=== PATIENT | male | born 1980 | race Caucasian/White ===

== ENCOUNTER 2021-06-13 18:08 | Emergency (ER) | payer MEDICARE, MEDICAID, SELFPAY ==
[2021-06-13 20:05] VITALS: BP 137/93; PULSE 64; RESP 16; TEMP 36.4; O2SAT 98; BMI 28.1
[2021-06-13] MEDS: Lidocaine HCl 2 % MPF 5 ML VIAL INFILTRATI ×2 (21:42→21:43)
[2021-06-13] MEDS: Diphth,Pertus(ACell),Tet Adult 0.5 ML SYRINGE IM (21:43)
--- NOTE | 2021-06-13 22:01 | ED_ITS ---
HPI - General Adult General Chief complaint: Skin/Abscess/Foreign Body Stated complaint: ingrown nail Time Seen by Provider: 06/13/21 20:57 Source: patient Mode of arrival: ambulatory Limitations: no limitations History of Present Illness HPI narrative: Patient presents to ED right ingrown toenail of great toe for 2 weeks as very painful. Patient has had ingrown toenail removed before in the past. Patient denies any trauma to the foot Related Data Previous Rx's Medication Instructions Recorded naproxen 500 mg tablet 500 mg PO BID PRN #20 tab 06/13/21 Allergies Allergy/AdvReac Type Severity Reaction Status Date / Time oxycodone Allergy Unknown Verified 05/26/16 00:00 No Known Allergies Allergy Unverified 05/27/20 16:39 [No Known Allergies*] Review of Systems Review of Systems: Yes all other systems are reviewed and are negative Constitutional: Constitutional: Reports as per HPI and Reports no additional constitutional complaints Eyes: Eyes: Reports as per HPI and Reports no additional eye complaints ENT: Reports system reviewed and no additional complaints, except as documen noemy and Reports as per HPI Cardiovascular: Cardiovascular: Reports as per HPI and Reports no additional cardiovascular complaints Respiratory: Respiratory: Reports as per HPI and Reports no additional respiratory complaints Gastrointestinal: Gastrointestinal: Reports as per HPI and Reports no additional gastrointestinal complaints Musculoskeletal: Musculoskeletal: Reports no additional musculoskeletal complaints and Reports as per HPI Comments: Right ingrown toenail Neurologic: Reports system reviewed and no additional complaints, except as documented and Reports as per HPI Psychiatric: Psychiatric: Reports no additional psychiatric complaints and Reports as per HPI COUNT INCLUDES [facility] Past Medical History Medical History (Updated 06/13/21 @ 22:11 by KHADRA Taylor) No known health problems Social History Social History Advance Directives: No Advance Directives Information Provided: No Physical Exam Vital Signs: Vital Signs: Last Vital Signs Temp 97.6 F 06/13/21 20:05 Pulse 64 06/13/21 20:05 Resp 16 06/13/21 20:05 BP 137/93 H 06/13/21 20:05 Pulse Ox 98 06/13/21 20:05 Body Mass Index 28.1 Const: General: cooperative, healthy appearing, comfortable, no acute distress, well developed, alert, awake and Physically active Orientation/consciousness: patient oriented x3 HENMT: Head: Yes normal to inspection, Yes No palpable skull fracture present, Yes normocephalic, Yes atraumatic and No abrasion Eyes: General: appearance normal, both eyes and all related structures Neck: Neck: Yes normal visual inspection, Yes full ROM, Yes no lympha denopathy, Yes no meningeal signs, Yes trachea midline, Yes supple and No tender Chest: Chest palpation & inspection: normal inspection of the chest and normal palpation of entire chest wall Resp: Effort & Inspection: normal respiratory effort and able to speak in complete sentences Auscultation: clear to auscultation bilaterally Cardio: Jugular venous distension: no JVD Heart sounds: S1 normal heart sound present and S2 normal heart sound present GI: Inspection: Yes normal to inspection and No abdominal wall ecchymosis Palpation (GI): Soft to palpation, not firm, nontender, no guarding and not r igid : General: No CVA tenderness and Yes no CVA tenderness Back/Spine/Pelvis: Back: no CVA tenderness, No CVA tenderness and No back tenderness Skin: General skin exam: no rashes or lesions noted and elasticity normal Neuro: General: patient oriented x3, gait normal, no meningeal signs and CN's II-XI intact bilaterally Cranial nerves: Yes CN's II-XII intact bilaterally Extrem: General: Yes normal to inspection and Yes full ROM Ankle/foot/toe images: 1. Ingrown toenail with surrounding skin tender on palpation. Negative for deformity or ecchymosis. Pedal pulses intact. Neuro/motor exam intact Psych: Appearance: grossly normal, well kempt and not disheveled Course Course Course Narrative: Ingrown toenail. Reevaluation(s) Reevaluation #1: Right big toe an anestheside with 6 mL of lidocaine 2%. Area cleaned with Betadine and normal saline. Forceps and scissors used to excise ingrown toenail. Xeroform dressing placed on area. Patient given Tdap. Time: 22:10 Medical Decision Making [facility] Narrative Medical decision making narrative: Ingrown toenail Discharge Plan Discharge Clinical Impression: Ingrowing toenail of right foot Patient Disposition: Home, Self-Care Instructions: Ingrown Nail (ED) Additional Instructions: Your ingrown toenail removed. You will be discharged with pain medication. Return to the ED for erythema, pus discharge, foul odor, severe pain from area, fever, chills, or any other concerning symptoms. Please follwo up with PCP Prescriptions: New naproxen 500 mg tablet 500 mg PO BID PRN (Reason: pain) Qty: 20 RF: 0 Stand Alone Forms: Work/School Release Print Language: Indonesian
[2021-06-13] MEDS: traMADoL HCL 50 MG TABLET PO (22:33)
== END 2021-06-13 22:36 | disposition home or self-care (01) ==
PROVIDERS: Emergency Provider Internal Medicine; PCP Internal Medicine
DX: S90.411A Abrasion, right great toe, initial encounter (principal); L60.0 Ingrowing nail; X58.XXXA Exposure to other specified factors, initial encounter; Y93.9 Activity, unspecified; Y92.9 Unspecified place or not applicable; Y99.9 Unspecified external cause status; Z79.899 Other long term (current) drug therapy
CPT/HCPCS: 11750; 90471; 90715; 99283; 99284

== ENCOUNTER 2022-07-15 23:25 | Emergency (ER) | payer MEDICARE, MEDICAID, SELFPAY ==
[2022-07-15 23:34] VITALS: BP 105/65; PULSE 74; RESP 20; TEMP 36.3; O2SAT 95; BMI 31.3
[2022-07-16 01:12] LABS: Basophils Percent Auto 0.2 % (0-2); Eosinophils Absolute Auto 0.1 X10*3/uL (0.0-0.4); Eosinophils Percent Auto 1.3 % (0-4); Hematocrit 45.7 % (42.0-52.0); Hemoglobin 15.5 g/dl (14.0-18.0); Imm Gran Abs Auto 0.04 X10*3/uL (0.00-0.03); Imm Gran Pct Auto 0.5 % (0.0-0.4); Lymphocytes Absolute Auto 2.7 X10*3/uL (1.2-4.9); Lymphocytes Percent Auto 32.9 % (20-40); MANUAL DIFF FLAG NO; Mean Corpuscular HGB Conc 33.9 g/dl (31.0-36.0); Mean Corpuscular Hemoglobin 29.6 pg (27.0-33.0); Mean Corpuscular Volume 87.4 fL (80.0-98.0); Monocytes Percent Auto 11.8 % (2-11); Neutrophils Absolute Auto 4.4 x10*3/uL (2.0-8.3); Neutrophils Percent Auto 53.3 % (45-73); Platelet Count 229 X10*3/uL (160-400); Red Blood Count 5.23 X10*6/uL (4.60-5.80); White Blood Count 8.3 X10*3/uL (4.8-10.8)
[2022-07-16 01:27] LABS: Alanine Aminotransferase 30 U/L (0-40); Albumin Level 4.2 g/dL (3.5-5.0); Alkaline Phosphatase 83 U/L (39-117); Anion Gap 18 (12-20); Aspartate Amino Transferase 19 U/L (5-37); Bilirubin Total 0.3 mg/dL (0.0-1.0); Blood Urea Nitrogen 18 mg/dL (9-16); Calcium 9.2 mg/dL (8.4-10.2); Carbon Dioxide 23 mmol/L (22-29); Chloride 106 mmol/L (96-108); Estimated Glomerular Filt Rate 53; Glucose Random 107 mg/dL (60-115); Potassium 3.7 mmol/L (3.3-5.1); Sodium 143 mmol/L (135-145); Total Protein 6.9 g/dL (6.5-8.0)
== END 2022-07-16 02:47 | disposition left against medical advice (07) ==
PROVIDERS: Emergency Provider Emergency Medicine
DX: M79.605 Pain in left leg (principal); M79.604 Pain in right leg; R20.0 Anesthesia of skin; R20.2 Paresthesia of skin
CPT/HCPCS: 36415; 80053; 85025; 99281; 99283

== ENCOUNTER 2022-08-06 16:22 | Emergency (ER) | payer MEDICARE, MEDICAID, SELFPAY ==
[2022-08-06 17:14] VITALS: BP 132/90; PULSE 65; RESP 18; TEMP 36.3; O2SAT 97; BMI 31.4
--- NOTE | 2022-08-06 17:14 | ED_ITS ---
HPI - General Adult General Chief complaint: General Medical Stated complaint: swollen neck, ear pain Time Seen by Provider: 08/06/22 21:31 Source: patient Mode of arrival: ambulatory Limitations: no limitations History of Present Illness HPI narrative: Patient is a 42 year old assigned male at with no reported medical history presenting to the emergency department today with a painful lump and swollen lymph nodes. Patient states that 2 days ago he started to have general body aches, a painful lump on his forehead, and swollen left sided lymph nodes in his neck. Patient denies any dizziness, lightheadedness, abdominal pain, nausea, vomiting, fever, chills, blurry vision, double vision, loss of vision, chest pain, difficulty breathing, shortness of breath, back pain, night sweats, pain with urination, increased urinary frequency, increased urinary urgency, blood in his urine or stool, syncope or a near syncopal episode, recent trauma or falls, bowel incontinence, bladder incontinence, bowel retention, bladder retention, or any other complaints at this time. Onset (ago): day(s) (2) Severity: mild Severity scale (1-10): 3 Relieving factors: none Exacerbating factors: none Associated symptoms: denies other symptoms Treatments prior to arrival: none Related Data Previous Rx's Medication Instructions Recorded naproxen 500 mg tablet 500 mg PO BID PRN pain #20 tabs 06/13/21 Allergies Allergy/AdvReac Type Severity Reaction Status Date / Time No Known Allergies Allergy Unverified 05/27/20 16:39 [No Known Allergies*] Review of Systems Constitutional: Constitutional: Reports no additional constitutional c omplaints, Reports body ache(s), Denies chills, Denies fever(s) and Denies night sweats Eyes: Eyes: Reports no additional eye complaints, Denies blurry vision, Denies change in vision, Denies diplopia, Denies eye discharge, Denies loss of vision and Denies eye pain ENT: Denies dizziness Comments: swollen neck lymph nodes Cardiovascular: Cardiovascular: Reports no additional cardiovascular complaints, Denies chest pain, Denies lightheadedness, Denies Loss of Consciousness and Denies dyspnea Respiratory: Respiratory: Reports no additional respiratory complaints and Denies dyspnea Gastrointestinal: Gastrointestinal: Reports no additional gastrointestinal complaints, Denies abdominal pain, Denies melena, Denies hematochezia, Denies change in bowel habits and Denies change in stool character Genitourinary: Genitourinary: Reports no additional male genitourinary complaints, Denies hematuria, Denies oliguria, Denies difficulty urinating, Denies dysuria, Denies urinary frequency, Denies urinary hesitancy, Denies urinary incontinence and Denies urinary urgency Musculoskeletal: Musculoskeletal: Reports no additional musculoskeletal complaints, Denies numbness and Denies tingling Integumentary/Breasts: Comments: painful lump on forehead Neurologic: Denies dizziness, Denies loss of vision, Denies numbness and Denies tingling Psychiatric: Psychiatric: Reports no additional psychiatric complaints Endocrine: Endocrine: Reports no additional endocrine complaints Hematologic/Lymphatic: Hematologic/Lymphatic: Reports no additional hematologic/lymphatic complaints Allergic/Immunologic: Allergic/Immunologic: Reports no additional allergic/immunologic complaints PMFSH Past Medical History Attestation statement: The following information was validated with the patient. Source: old records reviewed Medical History No known health problems Social History Social History Advance Directives: No Advance Directives Information Provided: No Physical Exam ED Vital Signs: Vital Signs - 24 hr 08/06/22 17:14 Temperature 97.4 F Pulse Rate 65 Respiratory Rate 18 Blood Pressure 132/90 H Pulse Oximetry 97 Oxygen Delivery Method Room Air BMI result Body Mass Index 31.4 Const General: cooperative, no acute distress, alert and awake Nutritional Appearance: well nourished Orientation/consciousness: patient oriented x3 Limitations: no limitations [facility] Head: Yes normal to inspection and Yes atraumatic Ears: hearing grossly normal bilaterally and external ears normal General nose exam: Normal external nose present, no nasal discharge noted and no epistaxis Face and sinus: Yes normal facial exam, No abrasion and No laceration Mouth: Normal oral and palatal mucosa present, no drooling and no muffled voice Eyes General: appearance normal, both eyes and all related structures Periorbital: periorbital findings normal Eyelids: Yes eyelids normal Conjunctivae: conjunctivae normal Pupils: Equal, round and reactive pupils present EOM: EOMs intact bilaterally Neck Neck: Yes normal visual inspection, Yes full ROM, Yes no meningeal signs and Yes lymphadenopathy (left anterior cervical) Chest Chest palpation & inspection: normal inspection of the chest Resp Effort & Inspection: normal respiratory effort and able to speak in complete s entences GI Inspection: Yes normal to inspection Skin Other: small pustule above left eye brow Neuro General: patient oriented x3, moves all extremities and no meningeal signs Cranial nerves: Yes Equal, round and reactive pupils present Cognition (Neuro): normal cognition Motor exam (neuro): 5/5 motor strength present throughout Sensory Exam: Normal double simultaneous stimulation for sensation Coordination: [id number] test normal Extrem General: Yes normal to inspection, Yes full ROM and Yes capillary refill normal Psych Appearance: grossly normal Mental Status: mental status grossly normal Affect: normal affect Attitude: cooperative Thought process: Normal thought process present Thought content: Normal thought content present Insight: Good insight present (Psych) Course Course Course Narrative: RME performed by Dania Alvarez PA-C. Patient is a 42 year old male presenting to the emergency department with generalized body aches, left ear pain, and left sided neck pain. Patient's left TM is erythmeatous. COVID/Influenza/RSV swab ordered. Patient placed back in waiting room pending results and bed availabiltiy. Medical Decision Making MDM Narrative Medical decision making narrative: Patient is a 42 year old assigned male at with no reported medical history presenting to the emergency department today with swollen lympnodes, body aches, and a lump on his forehead. Patient's physical exam showed a small pustule just above the left eyebrow, and mild left sided anterior cervical lymphadenopathy. Patient's COVID-19/influenza/RSV swab was negative. Patient eloped from the department before the patient's results could be explained to him or reviewed with him. Lab Data Labs: Lab Results 08/06/22 Range/Units 17:19 Influenza Type A (PCR) NEGATIVE (Negative) Influenza Type B (PCR) NEGATIVE (Negative) RSV RNA Qual (PCR) NEGATIVE (Negative) SARS-CoV-2 RNA (RT-PCR) NEGATIVE (Negative) Discharge Plan Discharge Clinical Impression: Lymphadenopathy Patient Disposition: Elopement Prescriptions: No Action naproxen 500 mg tablet 500 mg PO BID PRN (Reason: pain) Qty: 20 0RF Interventions: LWBS Worksheet Last Done: 08/06/22 21:31 Discharge Date/Time: 08/06/22 22:20
[2022-08-06 18:04] LABS: Influenza A PCR NEGATIVE (Negative); Influenza B PCR NEGATIVE (Negative); Resp Syncy Virus RNA Qual PCR NEGATIVE (Negative); SARS COV2 PCR INHOUSE NEGATIVE (Negative)
== END 2022-08-06 22:20 | disposition left against medical advice (07) ==
PROVIDERS: Physician Assistant Medical; Emergency Provider Emergency Medicine
DX: M54.2 Cervicalgia (principal); H92.03 Otalgia, bilateral; R59.1 Generalized enlarged lymph nodes; Z20.822 Contact with and (suspected) exposure to COVID-19; Z79.899 Other long term (current) drug therapy
CPT/HCPCS: 0241U; 99281; 99283

== ENCOUNTER 2022-08-09 09:11 | Emergency (ER) | payer MEDICARE, MEDICAID, SELFPAY ==
[2022-08-09 09:21] VITALS: BP 111/70; PULSE 66; RESP 20; TEMP 36.2; O2SAT 97; BMI 31.4
--- NOTE | 2022-08-09 11:47 | ED.GENADULT ---
HPI - General Adult General Chief complaint: General Medical Stated complaint: L eye swollen, neck swollen Time Seen by Provider: 08/09/22 11:24 Source: patient Mode of arrival: ambulatory Limitations: no limitations History of Present Illness HPI narrative: 42-year-old male presents to ED for painful swollen rash above left eyebrow, left ear pain, left side of neck tender and slightly swollen. Patient states there was a pimple above his left eyebrow and then he scratched it and then started noticing redness, , burning, and itchiness. Patient denies any eye pain, loss of hearing, nasal lesions, coughing, chest pain, shortness of breath. Patient states chronic lower back pain exacerbation. Patient denies any IV drugs a history of immunocompromised disease. Patient denies any change in eye vision or recent blunt trauma to the eye. Related Data Previous Rx's Medication Instructions Recorded naproxen 500 mg tablet 500 mg PO BID PRN pain #20 tabs 06/13/21 cephalexin 500 mg capsule 500 mg PO QID 7 days #28 caps 08/09/22 doxycycline hyclate 100 mg capsule 100 mg PO BID 7 days #14 caps 08/09/22 naproxen 500 mg tablet 500 mg PO BID PRN pain 7 days #14 08/09/22 tabs valacyclovir 1 gram tablet 1,000 mg PO TID 7 days #21 tabs 08/09/22 Allergies Allergy/AdvReac Type Severity Reaction Status Date / Time No Known Allergies Allergy Unverified 05/27/20 16:39 [No Known Allergies*] Review of Systems Review of Systems: painful rash above left eye. left neck, and ear pain Yes all other systems are reviewed and are negative [facility] Past Medical History Medical History No known health problems Social History Social History Advance Directives: No Advance Directives Information Provided: No Physical Exam ED Vital Signs: Vital Signs - 24 hr 08/09/22 09:21 Temperature 97.2 F Pulse Rate 66 Respiratory Rate 20 Blood Pressure 111/70 Pulse Oximetry 97 Oxygen Delivery Method Room Air BMI result Body Mass Index 31.4 Const General: cooperative, healthy appearing, comfortable, no acute distress, well developed, alert, awake and Physically active Orientation/consciousness: oriented to person, oriented to place, oriented to time and patient oriented x3 HENSC Other: pustule rash. negative for lesion on nose. Head: Yes normal to inspection, Yes No palpable skull fracture present, Yes normocephalic, Yes atraumatic and No abrasion Ears: hearing grossly normal bilaterally, external ears normal, TM's normal bilaterally, TM normal on the right, TM normal on the left, EAC's normal, mastoids normal, no periauricular adenopathy and other (negative arcos koehler) Eyes Other: negative dendrites or corneal ulcers or lesions General: appearance normal, both eyes and all related structures Neck Neck: Yes normal visual inspection, Yes full ROM, Yes no meningeal signs, Yes trachea midline, No supple and Yes lymphadenopathy (left cervical) Chest Chest palpation & inspection: normal inspection of the chest and normal palpation of entire chest wall Resp Effort & Inspection: normal respiratory effort and able to speak in complete sentences Auscultation: clear to auscultation bilaterally Cardio Jugular venous distension: no JVD Heart sounds: S1 normal heart sound present and S2 normal heart sound present GI Inspection: Yes normal to inspection and No abdominal wall ecchymosis Palpation (GI): Soft to palpation, not firm, nontender, no guarding and not rigid General: No CVA tenderness and Yes no CVA tenderness Back/Spine/Pelvis Back: no CVA tenderness, No CVA tenderness and No back tenderness Skin General skin exam: no rashes or lesions noted and elasticity normal Neuro General: oriented to person, oriented to place, oriented to time, patient oriented x3, gait normal, tone normal and no meningeal signs Cranial nerves: Yes CN's II-XII intact bilaterally Extrem General: Yes normal to inspection and Yes full ROM Psych Appearance: grossly normal, well kempt and not disheveled Course Course Course Narrative: Will do eye exam a fluorescein dye and wood's lamp. Reevaluation(s) Reevaluation #1: Visual acuity both eyes 20/20. Negative for signs of corneal abrasion, corneal ulcer, or dendrites. test done with fluroscein dye and tetracine and wood's lamp was used. Physical exam indicates more cellulitis versus shingles but due to ear pain and left cervical lymphadenopathy and rash looks pusutle will discharge with antiviral medication. Informed to follow-up with primary care provider and eye doctor Time: 12:27 Medications Administered Discontinued Medications Generic Name Dose Route Start Last Admin Trade Name Elianq PRN Reason Stop Dose Admin Fluorescein Sodium 1 strip 08/09/22 11:47 08/09/22 12:04 Fluorescein Sodium Strip EYE-LEFT 08/09/22 11:48 1 strip ONCE ONE Administration Fluorescein Sodium 1 strip 08/09/22 11:47 08/09/22 12:03 Fluorescein Sodium Strip EYE-RIGHT 08/09/22 11:48 1 strip ONCE ONE Administration Naproxen 500 mg 08/09/22 12:14 08/09/22 12:55 Naproxen 500 Mg Tablet PO 08/09/22 12:15 500 mg ONCE ONE Administration Tetracaine HCl 3 drop 08/09/22 11:47 08/09/22 12:03 Tetracaine Hcl/Pf 0.5% Oph Jessica 4 Ml Drops EYE-BOTH 08/09/22 11:48 3 drop ONCE ONE Administration Medical Decision Making MDM Narrative Medical decision making narrative: facial cellulitis Discharge Plan Discharge Clinical Impression: Cellulitis, face Patient Disposition: Home, Self-Care Instructions: Cellulitis (ED), Warm Compress or Soak (ED) Additional Instructions: You will be discharged with antibiotics for skin infection cellulitis. This may also be early shingles which is why you will be discharged with antiviral medication. Please follow-up with primary care provider and eye doctor. Recommend warm compress on left side of face 4 times a day. Return to the ED immediately for worsening pain, increased swelling, nasal lesions, worsening ear pain, change/loss of vision, headache, fever, chills, drooling, change in voice, increased swelling of neck, or any other concerning symptoms. Prescriptions: New cephalexin 500 mg capsule 500 mg PO QID 7 Days Qty: 28 0RF doxycycline hyclate 100 mg capsule 100 mg PO BID 7 Days Qty: 14 0RF valacyclovir 1 gram tablet 1,000 mg PO TID 7 Days Qty: 21 0RF naproxen 500 mg tablet 500 mg PO BID PRN (Reason: pain) 7 Days Qty: 14 0RF No Action naproxen 500 mg tablet 500 mg PO BID PRN (Reason: pain) Qty: 20 0RF Referrals: Denys Sheridan III, MD [Primary Care Provider] - (Cellulitis of face. possible early facial shingles) Ludin Solitario [Physician] - (possible early facial shingles) Stand Alone Forms: Work/School Release Interventions: ED Discharge Assessment Last Done: 08/09/22 13:01 Discharge Date/Time: 08/09/22 13:03 Print Language: Palauan
[2022-08-09] MEDS: Tetracaine HCl/PF 0.5% Oph Sol 4 ML DROPS 3 DROP EYE-BOTH (12:03)
[2022-08-09] MEDS: Fluorescein Sodium STRIP 1 STRIP EYE-RIGHT (12:03)
[2022-08-09] MEDS: Fluorescein Sodium STRIP 1 STRIP EYE-LEFT (12:04)
[2022-08-09] MEDS: NaPROXEN 500 MG TABLET PO (12:55)
== END 2022-08-09 13:03 | disposition home or self-care (01) ==
PROVIDERS: Emergency Provider Student in an Organized Health Care Education/Training Program; PCP Internal Medicine
DX: L03.211 Cellulitis of face (principal)
CPT/HCPCS: 99283

== ENCOUNTER 2024-10-11 18:12 | Emergency (ER) | payer OTHER, SELFPAY ==
--- NOTE | ~2024-10-11 | XR_ITS ---
CLINICAL HISTORY: ? Dislocation. Pain 3 view right shoulder Comparison: None Findings: Bones intact. No dislocations. No significant loss of joint space or osteophytes. No erosions. No radiopaque foreign body. IMPRESSION: 1. No acute findings This document has been electronically signed by: Ish Duncan MD on 10/11/2024 19:08:52
--- NOTE | ~2024-10-11 | XR_ITS ---
CLINICAL HISTORY: rib pain, coughing 4 view, chest and right ribs Comparison: None Findings: Heart size is normal. Lung volumes are low. No effusion or pneumothorax. No rib fractures identified. No pneumothorax. No pleural effusion. IMPRESSION: 1. No acute fractures. This document has been electronically signed by: Ish Duncan MD on 10/11/2024 20:48:17
[2024-10-11 18:18] VITALS: BP 142/90; PULSE 86; RESP 28; TEMP 36.6; O2SAT 98; BMI 31.5
--- NOTE | 2024-10-11 18:19 | ED_ITS ---
HPI - Extremity Injury (Upper) General Chief Complaint: Extremity Injury, Upper Stated Complaint: Rt Shoulder Pain Time Seen by Provider: 10/11/24 19:29 Source: patient, RN notes reviewed and old records reviewed Mode of arrival: ambulatory History of Present Illness ED Provider: Tory Leal PA-C HPI narrative: 44-year-old male with a past medical history right shoulder dislocation s/p operation 5 years ago presenting to the ED complaining of suspected right shoulder dislocation/possible relocation s/p cleaning INFORMATION SYSTEMS ADMINISTRATOR. States was overhead reaching for something/pulling and felt shoulder pop. Denies direct injury, trauma/fall. Reports increasing pain since incident. Denies numbness, tingling, SOB. Related Data Previous Rx's ?Medication ?Instructions ?Recorded naproxen 500 mg tablet 500 mg PO BID PRN pain #20 tabs 06/13/21 cephalexin 500 mg capsule 500 mg PO QID 7 days #28 caps 08/09/22 doxycycline hyclate 100 mg capsule 100 mg PO BID 7 days #14 caps 08/09/22 naproxen 500 mg tablet 500 mg PO BID PRN pain 7 days #14 08/09/22 tabs valacyclovir 1 gram tablet 1,000 mg PO TID 7 days #21 tabs 08/09/22 acetaminophen 500 mg tablet 500 mg PO Q6H PRN fever or pain 10/11/24 (Tylenol Extra Strength) #14 tabs cyclobenzaprine 10 mg tablet 10 mg PO TID PRN muscle spasm #14 10/11/24 tabs lidocaine 5 % topical patch 1 patch topical DAILY PRN pain #30 10/11/24 (Lidoderm) ea naproxen 500 mg tablet 500 mg PO BID PRN pain 10 days #20 10/11/24 tabs Allergies Allergy/AdvReac Type Severity Reaction Status Date / Time No Known Allergies Allergy Verified 10/11/24 18:19 [No Known Allergies*] Review of Systems Review of Systems: Yes all other systems are reviewed and are negative Constitutional: Constitutional: Reports as per [facility] Past Medical History Attestation statement: The following information was validated with the patient. Source: old records reviewed Medical History No known health problems Social History Social History Advance Directives: No Advance Directives Information Provided: No Do you have a plan to hurt others: No Plan Physical Exam Vital Signs: Vital Signs: Last Vital Signs Temp 98.2 F 10/11/24 21:31 Pulse 66 10/11/24 21:31 Resp 20 10/11/24 21:31 BP 120/74 10/11/24 21:31 Pulse Ox 97 10/11/24 21:31 O2 Del Method Room Air 10/11/24 21:31 BMI result Body Mass Index 31.5 Const: General: cooperative, healthy appearing and no acute distress Orientation/consciousness: patient oriented x3 Limitations: no limitations HEENT: Head: Yes normal to inspection and Yes atraumatic Ears: hearing grossly normal bilaterally General nose exam: Normal external nose present Face and sinus: Yes normal facial exam Eyes: General: appearance normal, both eyes and all related structures EOM: EOMs intact bilaterally Neck: Neck: Yes normal visual inspection and Yes no meningeal signs Chest: Other: + tenderness to right anterior lateral c hest wall beneath axilla. No flail chest. No ecchymosis or erythema Chest palpation & inspection: normal inspection of the chest and no crepitus Resp: Effort & Inspection: normal respiratory effort and no respiratory distress Cardio: Rate: regular rate Heart sounds: S1 normal heart sound present and S2 normal heart sound present GI: Inspection: Yes normal to inspection Palpation (GI): Soft to palpation, nontender, no guarding and not rigid Skin: Rashes: no rashes Wounds: no wounds Neuro: General: patient oriented x3, tone normal and no meningeal signs Cranial nerves: Yes CN's II-XII intact bilaterally Gait exam (Neuro): Normal gait present Extrem: Other: Right shoulder without appreciable deformity or swelling. Diffusely tender to palpation. ROM intact with discomfort. Neurovascularly intact distally. Course Course Course Narrative: This is a Rapid Medical Exam performed in triage by Tory Leal PA-C. Full HPI, ROS and PE to be performed by primary ED provider. 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 Denies known injury, trauma denies numbness/tingling. PE: No appreciable deformity. Diffusely tender. Limited ROM. Neurovascularly intact distally Plan: X-ray XR shoulder RT min 2V IMPRESSION: 1. No acute findings > sling applied for comfort XR ribs RT min 3V w CXR1V IMPRESSION: 1. No acute fractures. Results discussed with patient including worrisome signs and symptoms and strict return precautions, and when to return to the emergency department. They verbalized understanding and feel safe for discharge at this time. Medications Administered Discontinued Medications Generic Name Dose Route Start Last Admin Trade Name Cody PRN Reason Stop Dose Admin Cyclobenzaprine HCl 10 mg 10/11/24 19:57 10/11/24 20:05 Cyclobenzaprine Hcl 10 Mg Tablet PO 10/11/24 19:58 10 mg ONCE ONE Administration Ketorolac Tromethamine 30 mg 10/11/24 19:57 10/11/24 20:05 Ketorolac Tromethamine 30 Mg/Ml Vial IM 10/11/24 19:58 30 mg ONCE ONE Administration Lidocaine 1 patch 10/11/24 19:57 10/11/24 20:03 Lidocaine 4 % Patch Adh..Patch TRANSDERMA 10/11/24 19:58 1 patch ONCE ONE Administration Protocol Medical Decision Making Medical Decision Making MDM Narrative: 44-year-old male with a past medical history right shoulder dislocation s/p operation 5 years ago presenting to the ED complaining of suspected right shoulder dislocation/possible relocation s/p cleaning INFORMATION SYSTEMS ADMINISTRATOR. On exam tachypneic likely from pain, appears uncomfortable, physical exam as noted above. Concern for dislocation/relocation. Low suspicion for active dislocation at this time. Rule out MSK pain/strain vs tendon/ligamental injury vs rib fracture. Low suspicion for intra-abdominal or intrathoracic bleeding Plan: X-rays, pain control Please refer to course for remaining clinical decision making, interpretation of labs/imaging results, and discussions with consultants and/or family members. Differential Diagnosis Differential Diagnoses: The differential diagnosis associated with the presentation includes As above Admission/Observation Consideration of admission/observation: Escalation of care including admission/observation considered Lab Data [facility] Lab Attestation statement: I reviewed the patient's lab results. Independent Interpretation I performed an independent interpretation of an: Plain X-Ray Radiology Impression Discussion of test interpretation with radiology: I have reviewed the radiolog ist's reading. External Record Review External record reviewed: Inpatient record, Office record, Outpatient record, Prior outpatient labs, Prior outpatient radiology, Primary care record and Outside ED record Tests considered The following testing was considered but not selected: As above Prescription Management I considered prescription management with: Pain Medication Chronic Conditions Patient?s care impacted by: Other Social Determinants Patient?s care significantly limited by Social Determinants of Health including: Other Social Determinant of Health Attestation Attending Attestation: I was personally present and available for consultation in the ED. I have reviewed everything on the chart that is available and agree with the documentation provided by the MARLEN including discussion about the assessment, treatment plan and discussion. Based on medical record the care appears appropriate. Neftali Membreno MD [facility] Emergency Medicine Discharge Plan Discharge Clinical Impression: Acute shoulder pain Patient Disposition: Home, Self-Care Instructions: Shoulder Pain (ED) Additional Instructions: Your shoulder x-rays unremarkable. Your shoulder is not dislocated. Please wear sling as needed for comfort, however you need to be moving/range of motioning your arm or you can develop frozen shoulder. Please practice gentle range of motion. you need to follow-up with the civil design specialist, call Sunday to make an appointment Flexeril is a muscle relaxer, take at night as it makes you drowsy, do not drive, drink alcohol, or operate machinery while taking it Naproxen as an anti-inflammatory / pain medication, take with food Lidoderm patches are numbing patches, apply to painful area In addition take Tylenol at home If symptoms persist or worsen, pain becomes unbearable, you developed urinary retention or incontinence, or weakness return to the ED Prescriptions: New cyclobenzaprine 10 mg tablet 10 mg PO TID PRN (Reason: muscle spasm) Qty: 14 0RF acetaminophen [Tylenol Extra Strength] 500 mg tablet 500 mg PO Q6H PRN (Reason: fever or pain) Qty: 14 0RF lidocaine [Lidoderm] 5 % adhesive patch,medicated 1 patch topical DAILY MDD remove after 12 hours PRN (Reason: pain) Qty: 30 0RF Rx Instructions: leave on most painful area for up to 12 hrs naproxen 500 mg tablet 500 mg PO BID PRN (Reason: pain) 10 Days Qty: 20 0RF No Action naproxen 500 mg tablet 500 mg PO BID PRN (Reason: pain) Qty: 20 0RF cephalexin 500 mg capsule 500 mg PO QID 7 Days Qty: 28 0RF doxycycline hyclate 100 mg capsule 100 mg PO BID 7 Days Qty: 14 0RF valacyclovir 1 gram tablet 1,000 mg PO TID 7 Days Qty: 21 0RF naproxen 500 mg tablet 500 mg PO BID PRN (Reason: pain) 7 Days Qty: 14 0RF Referrals: [facility] [Provider Group] Denys Sheridan III, MD [Primary Care Provider] - Stand Alone Forms: Work/School Release Interventions: ED Discharge Assessment Last Done: 10/11/24 21:31 Discharge Date/Time: 10/11/24 21:31 Print Language: Citizen [place]
[2024-10-11] MEDS: Lidocaine 4 % Patch ADH..PATCH 1 PATCH TRANSDERMA (20:03)
[2024-10-11] MEDS: Ketorolac Tromethamine 30 MG/ML VIAL IM (20:05)
[2024-10-11] MEDS: Cyclobenzaprine HCl 10 MG TABLET PO (20:05)
[2024-10-11 20:59] VITALS: BP 120/74; PULSE 66; RESP 20; TEMP 36.8; O2SAT 97
[2024-10-11 21:31] VITALS: BP 120/74; PULSE 66; RESP 20; TEMP 36.8; O2SAT 97
== END 2024-10-11 21:31 | disposition home or self-care (01) ==
PROVIDERS: Emergency Provider Emergency Medicine; PCP Internal Medicine
DX: M25.511 Pain in right shoulder (principal); R05.9 Cough, unspecified; R07.81 Pleurodynia
CPT/HCPCS: 71101; 73030; 96372; 99283; 99284; J1885

== ENCOUNTER → 2024-10-11 18:20 | Outpatient (BNV) | payer OTHER, SELFPAY | PROVIDERS: PCP Internal Medicine; Visit Provider Radiology Diagnostic Radiology | DX: R07.81 Pleurodynia (principal); R05.9 Cough, unspecified; M25.511 Pain in right shoulder | CPT/HCPCS: 71101; 73030 ==

== ENCOUNTER → 2025-03-03 20:20 | Outpatient (BNV) | payer OTHER, SELFPAY | PROVIDERS: PCP Internal Medicine; Visit Provider Radiology Vascular & Interventional Radiology | DX: M54.2 Cervicalgia (principal); G89.11 Acute pain due to trauma | CPT/HCPCS: 72040; 72100 ==

== ENCOUNTER 2025-03-03 20:22 | Emergency (ER) | payer OTHER, MEDICAID, SELFPAY ==
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
[2025-03-03 20:46] VITALS: BP 107/73; PULSE 77; RESP 14; TEMP 36.9; O2SAT 95; BMI 31.6
== END 2025-03-04 00:53 | disposition left against medical advice (07) ==
PROVIDERS: Emergency Provider Emergency Medicine; PCP Internal Medicine
DX: Z04.1 Encounter for examination and observation following transport accident (principal); Z53.21 Procedure and treatment not carried out due to patient leaving prior to being seen by health care provider; M54.9 Dorsalgia, unspecified; M54.2 Cervicalgia
CPT/HCPCS: 72040; 72100; 99281

== ENCOUNTER 2025-03-04 13:53 | Emergency (ER) | payer MEDICAID, SELFPAY ==
[2025-03-04 14:55] VITALS: BP 103/61; PULSE 73; RESP 16; TEMP 37; O2SAT 96; BMI 32.0
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
[2025-03-04 15:39] VITALS: BP 125/70; PULSE 72; RESP 18; O2SAT 97
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
[2025-03-04 16:34] VITALS: BP 125/73; PULSE 74; RESP 20; TEMP 36.6; O2SAT 95
[2025-03-04] MEDS: Ketorolac Tromethamine 15 MG/ML VIAL IM (16:37)
[2025-03-04] MEDS: dexAMETHasone 2 MG TABLET 10 MG PO (16:38)
[2025-03-04 16:44] VITALS: BP 125/73; PULSE 74; RESP 20; TEMP 36.6; O2SAT 95
--- OUTSIDE RECORDS SUMMARY | 2025-03-04 18:38 | XMS_ITS | Clinical Summary ---
Author Organization [employer] Address [address] [place] [address] Care Team Providers Care Diagnostic Cardiac Sonographer Name Role Phone Unavailable Primary Care Provider Unavailabl e Immunizations Immunization Administration Dates Next Due Moderna Covid-19 Vaccine 12+ 02/08/2021,01/11/20 21 Moderna Covid-19 Vaccine 6+ Bivalent 10/18/2022 Social History Tobacco Use Types Packs/Day Years Used Date Smoking Tobacco: Never Assessed Sex and Gender Information Value Date Recorded Sex Assigned at Male 07/10/2022 10:15 AM EDT Legal Sex Male 10:15 AM EDT Gender Identity Choose not to disclose 10:15 AM EDT Sexual Orientation Choose not to disclose 2021 10:15 AM EDT Plan of Treatment Health Maintenance Due Date Last Done Comments CT Colonography 1978 Colonoscopy 1978 Colorectal Cancer Screening 1978 Depression Screening 1978 FIT DNA/Cologuard 1978 FIT 1978 FOBT 1978 HIV Screening 1978 Lipid Panel 1978 SDOH Screening 1978 Sigmoidoscopy 1978 Disability Screening 1978 Alcohol/Substance Use Screening 1990 Tobacco Screening 1990 Family Planning (PISQ) 1993 Hepatitis C Screening 1996 DTaP/Tdap/Td Vaccines (1 - Tdap) 1997 Hepatitis B Vaccines (1 of 3 - 19+ 3-dose series) 1997 COVID-19 Vaccine ( - 2023-2 5 season) 2024 10/18/2022, 02/08/2021, 01/10/2021 Influenza Vaccine (Season Ended) 2025 Zoster Vaccines (1 of 2) 2028 RSV Patients and Patients Aged 60 years or older (1 - 1-dose 75+ series) 2053 HIB Vaccines Aged Out No longer eligi ble based on patient's age to complete this topic HPV Vaccines Aged Out No longer eligi ble based on patient's age to complete this topic Hepatitis A Vaccines Aged Out No long er eligible based on patient's age to complete this topic IPV Vaccines Aged Out No longer eligi ble based on patient's age to complete this topic Meningococcal B Vaccine Aged Out No l onger eligible based on patient's age to complete this topic Meningococcal Vaccine Aged Out No andrey alicia eligible based on patient's age to complete this topic Pneumococcal Vaccine: Pediatrics (0 to 5 Years) and At-Risk Patients (6 to 49) Years Aged Out No longer eligible b ased on patient's age to complete this topic RSV under 20 months Aged Out No longe r eligible based on patient's age to complete this topic Rotavirus Vaccines Aged Out No longer eligible based on patient's age to complete this topic Insurance [facility] STANDARD
== END 2025-03-04 16:45 | disposition home or self-care (01) ==
PROVIDERS: Emergency Provider Emergency Medicine
DX: S13.4XXA Sprain of ligaments of cervical spine, initial encounter (principal); M54.16 Radiculopathy, lumbar region; V59.3XXA Occupant (driver) (passenger) of pick-up truck or van injured in unspecified nontraffic accident, initial encounter; Y93.9 Activity, unspecified; Y92.481 Parking lot as the place of occurrence of the external cause; Y99.8 Other external cause status
CPT/HCPCS: 96372; 99284; J1885; J8540

== ENCOUNTER 2025-05-05 20:23 | Emergency (ER) | payer OTHER, SELFPAY ==
--- NOTE | ~2025-05-05 | XR_ITS ---
CLINICAL HISTORY: fall. Fracutre? 4 view left knee Comparison: None provided Findings: Bones intact. No dislocations. No significant arthritic change or erosions. No joint effusion. No radiopaque foreign body. IMPRESSION: 1. No acute findings. This document has been electronically signed by: Rukhsana Molina MD on 05/05/2025 21:49:12
[2025-05-05 21:02] VITALS: BP 122/76; PULSE 82; RESP 15; TEMP 36.9; O2SAT 96; BMI 31.0
--- NOTE | 2025-05-05 21:05 | ED_ITS ---
HPI - General Adult General Chief complaint: Extremity Injury, Lower Stated complaint: swollen left knee, pain History of Present Illness HPI narrative: patient left before completion of treatment by ED provider. Related Data Previous Rx's ?Medication ?Instructions ?Recorded naproxen 500 mg tablet 500 mg PO BID PRN pain #20 t abs 06/13/21 cephalexin 500 mg capsule 500 mg PO QID 7 days #28 cap s 08/09/22 doxycycline hyclate 100 mg capsule 100 mg PO BID 7 day s #14 caps 08/09/22 naproxen 500 mg tablet 500 mg PO BID PRN pain 7 day s #14 08/09/22 tabs valacyclovir 1 gram tablet 1,000 mg PO TID 7 days #21 tabs 08/09/22 acetaminophen 500 mg tablet 500 mg PO Q6H PRN fever or pain 10/11/24 (Tylenol Extra Strength) #14 tabs cyclobenzaprine 10 mg tablet 10 mg PO TID PRN muscle s pasm #14 10/11/24 tabs lidocaine 5 % topical patch 1 patch topical DAILY PRN pain #30 10/11/24 (Lidoderm) ea naproxen 500 mg tablet 500 mg PO BID PRN pain 10 da ys #20 10/11/24 tabs cyclobenzaprine 10 mg tablet 10 mg PO TID PRN muscle s pasm #14 03/04/25 tabs prednisone 20 mg tablet 40 mg (2 x 20 mg) PO DAILY 5 days 03/04/25 #10 tabs Allergies Allergy/AdvReac Type Severity Reaction Status Date / Time No Known Allergies (No Known Allergy Verified 05/05/25 21:04 Allergies*) FORMERLY [facility], [facility] Past Medical History Medical History No known health problems Social History Social History Advance Directives: No Advance Directives Information Provided: No Do you have a plan to hurt others: No Plan Physical Exam ED Vital Signs: Vital Signs - 24 hr 05/05/25 21:02 Temperature 98.5 F Pulse Rate 82 Respiratory Rate 15 Blood Pressure 122/76 Pulse Oximetry 96 Oxygen Delivery Method Room Air BMI result Body Mass Index 31.0 Course Course Course Narrative: RME: 45 year male presents to ED for left knee swelling with pain after fall since yesterday. Patient states pain on ambulation. Left knee appears swollen slightly red but negative for stiffness or warmth. Labs x-ray ordered. Medical Decision Making Lab Data 05/05/25 21:34 05/05/25 21:34 Labs: Lab Results 05/05/25 Range/Units 21:34 WBC 10.4 (4.8-10.8) X10*3/uL RBC 5.07 (4.60-5.80) X10*6/uL Hgb 15.5 (14.0-18.0) g/dl Hct 43.0 (42.0-52.0) % MCV 84.8 (80.0-98.0) fL MCH 30.6 (27.0-33.0) pg MCHC 36.0 (31.0-36.0) g/dl RDW 13.1 (11.0-16.0) % Plt Count 234 (160-400) X10*3/uL MPV 11.9 (9.4-12.4) fL Immature Gran % (Auto) 0.6 H (0.0-0.4) % Neut % (Auto) 51.2 (45-73) % Lymph % (Auto) 34.7 (20-40) % [place] % (Auto) 11.8 H (2-11) % Eos % (Auto) 1.4 (0-4) % Baso % (Auto) 0.3 (0-2) % Lymph # (Auto) 3.6 (1.2-4.9) X10*3/uL [place] # (Auto) 1.2 (0.1-1.2) X10*3/uL Eos # (Auto) 0.2 (0.0-0.4) X10*3/uL Baso # (Auto) 0.0 (0.0-0.2) X10*3/uL Abs Immat Gran (auto) 0.06 H (0.00-0.03) X10*3/uL Absolute Neuts (auto) 5.3 (2.0-8.3) x10*3/uL Absolute Nucleated RBC 0.000 (0.0-0.012) X10*3/uL Nucleated RBC % (auto) 0.0 (0.0-0.2) /100WBC ESR 2 (0-15) MM/HR Sodium 143 (135-145) mmol/L Potassium 3.8 (3.3-5.1) mmol/L Chloride 107 (96-108) mmol/L Carbon Dioxide 28 (22-29) mmol/L Anion Gap 12 (12-20) BUN 18 H (9-16) mg/dL Creatinine 1.40 (0.5-1.4) mg/dL Estim Creat Clear Calc 88.3 Estimated GFR 54 Random Glucose 90 (60-115) mg/dL Uric Acid 8.3 H (3.4-7.0) mg/dL Calcium 9.3 (8.4-10.2) mg/dL Total Bilirubin 0.3 (0.0-1.0) mg/dL AST 30 (5-37) U/L ALT 56 H (0-40) U/L Alkaline Phosphatase 83 (39-117) U/L C-Reactive Protein 0.19 (< or = 0.50) mg/dL Total Protein 6.9 (6.5-8.0) g/dL Albumin 4.5 (3.5-5.0) g/dL Discharge Plan Discharge Clinical Impression: Acute knee pain Patient Disposition: Left W/O Completing Treatment Prescriptions: No Action naproxen 500 mg tablet 500 mg PO BID PRN (Reason: pain) Qty: 20 0RF cephalexin 500 mg capsule 500 mg PO QID 7 Days Qty: 28 0RF doxycycline hyclate 100 mg capsule 100 mg PO BID 7 Days Qty: 14 0RF valacyclovir 1 gram tablet 1,000 mg PO TID 7 Days Qty: 21 0RF naproxen 500 mg tablet 500 mg PO BID PRN (Reason: pain) 7 Days Qty: 14 0RF cyclobenzaprine 10 mg tablet 10 mg PO TID PRN (Reason: muscle spasm) Qty: 14 0RF acetaminophen [Tylenol Extra Strength] 500 mg tablet 500 mg PO Q6H PRN (Reason: fever or pain) Qty: 14 0RF lidocaine [Lidoderm] 5 % adhesive patch,medicated 1 patch topical DAILY MDD remove after 12 hours PRN (Reason: pain) Qty: 30 0RF Rx Instructions: leave on most painful area for up to 12 hrs naproxen 500 mg tablet 500 mg PO BID PRN (Reason: pain) 10 Days Qty: 20 0RF cyclobenzaprine 10 mg tablet 10 mg PO TID PRN (Reason: muscle spasm) Qty: 14 0RF prednisone 20 mg tablet 40 mg PO DAILY 5 Days Qty: 10 0RF Interventions: LORENA Worksheet Last Done: 05/06/25 02:30 Discharge Date/Time: 05/06/25 02:30
--- OUTSIDE RECORDS SUMMARY | 2025-05-05 21:37 | XMS_ITS | Clinical Summary ---
Author Organization [facility] Address [address] [facility] [address] [place] [address] Care Team Providers Care Manager Simulation Name Role Phone Unavailable Primary Care Provider [...] season) 2024 10/18/2022, 02/08/2021, 01/10/2021 Influenza Vaccine (#1) 2025 Zoster Vaccines (1 of 2) 2028 [...] patient's age to complete this topic Insurance [facility] ST[facility]
--- OUTSIDE RECORDS SUMMARY | 2025-05-05 21:37 | XMS_ITS | Clinical Summary ---
Author Organization [facility] Address [address] [place] [address] Phone Care Team Providers Care E Learning Developer Name Role Phone Denys Sheridan MD Primary Care Provider [phone] Allergies No known active allergies Medications albuterol HFA (PROAIR HFA ; PROVENTIL HFA ; VENTOLIN HFA) 90 mcg/actuation inhaler Inhale 2 Puffs into the lungs every 6 hours as needed for Cough, Wheezing or Shortness of Breath. 4 Active clotrimazole-be tamethasone (LOTRISONE) 1-0.05 % cream Apply small amount to affected area of right foot twice daily for 4 weeks. Active cyclobenzaprine (FLEXERIL) 10 mg tablet Take 1 Tablet by mouth every 8 hours as needed for Muscle spasms. Active fluticasone HFA (FLOVENT HFA) 110 mcg/actuation inhaler Inhale 1 Puff into the lungs 2 times daily for 360 days. 06/29/20 Active loratadine (CLARITIN) 10 mg tablet Take 1 Tablet by mouth daily. Active naproxen (NAPROSYN) 500 mg tablet Take 1 Tablet by mouth 2 times daily (with meals). Active sertraline (ZOLOFT) 100 mg tablet Break pill in half daily x 2 weeks, then increase to 1 full tab. Needs to be seen for refills 1 Active sertraline (ZOLOFT) 50 mg tablet Take 1 Tablet by mouth daily. 4 Active traZODone (DESYREL) 100 mg tablet Take 1 Tablet by mouth at bedtime. 4 Active Active Problems Problem Noted Date Diagnosed Date DDD (degenerative disc disease), lumbar 07/13/20 19 Midline low back pain with sciatica 07/13/2019 Mild intermittent asthma without complication High triglycerides 01/22/2017 Anxiety 08/29/2016 Insomnia 08/29/2016 Encounters Date Type Department Care Team Description 04/03/2025 Telephone Adult Medicine [address] [address] Denys Sheridan MD from Last 3 Months Immunizations Name Administration Dates Next Due Influenza Quadravalent, MDCK , 0.5ml, with preservative (Flucelvax) 6mo and older 06/21/2018 Tdap Tetanus diptheria acell ular pertussis (Boostrix; Adacel) 7yo and older 12/31/2014 Surgical History Surgery Date Site/Laterality Comments CIRCUMCISION, NON- PROCEDURE: CIRCUMCISION, NOT ; COMMENT: Age 13 OTHER SURGICAL HISTORY PROCEDURE: HISTORY OTHER; COMMENT: Dislocating right shoulder APPENDECTOMY PROCEDURE: HISTORICAL APPENDECTOMY Family History Relation Name Status Comments Brother 1 Alive Brother 2 Alive Brother 3 Alive Brother 4 Alive Brother 5 Alive Father (Age 60) Lung cance r Mother Alive Sister 1 Motor vehicle a ccident Sister 2 Alive Sister 3 Alive Social History Tobacco Use Types Packs/Day Years Used Date Smoking Tobacco: Never Smokeless Tobacco: Never Alcohol Use Standard Drinks/Week Comments Not Asked 0 (1 standard drink = 0.6 oz pur e alcohol) Sex and Gender Information Value Date Recorded Sex Assigned at Not on file Legal Sex Male 2:36 PM EST Gender Identity Not on file Sexual Orientation Not on file Obstetrics History Last Filed Vital Signs Vital Sign Reading Time Taken Comments Blood Pressure 90/60 07/04/2024 9:49 AM EDT Pulse 72 07/04/2024 9:49 AM EDT Temperature - - Respiratory Rate - - Oxygen Saturation - - Inhaled Oxygen Concentration - - Weight 112 kg (246 lb) 07/04/2024 9:49 AM EDT Height 188 cm (6' 2 ) 07/04/2024 9:49 AM EDT Body Mass Index 31.58 07/04/2024 9:49 AM EDT Plan of Treatment Health Maintenance Due Date Last Done Comments Hepatitis B Vaccines (1 of 3 - 19+ 3-dose series) 1997 Pneumococcal Vaccine: Pediatrics (0 to 5 Years) and At-Risk Patients (6 to 49 Years) (1 of 2 - PCV) 1997 Colorectal Cancer Screening: Colonoscopy 08/09/2022 HIV Screening 08/09/2022 Hepatitis C Screening 08/09/2022 Social Influencers of Health Screening 08/09/2022 Cholesterol Screening (Lipid Panel) 06/21/2023 06/21/2018 COVID-19 Vaccine (3 - 2023-2 5 season) 2024 02/08/2021, 01/10/2021 Depression Screening 09/10/2024 07/04/2024 DTaP,Tdap,and Td Vaccines (2 - Td or Tdap) 12/31/2024 12/31/2014 Influenza Vaccine (#1) 2025 06/21/2018 HIB Vaccines Aged Out No longer eligi [...] on patient's age to complete this topic MMR Vaccines Aged Out No longer eligi ble based on patient's age to complete this topic Meningococcal ACWY Vaccine Aged Out N o longer eligible based on patient's age to complete this topic Meningococcal B Vaccine Aged Out No l onger eligible based on patient's age to complete this topic RSV Immunization Patients Under 20 months Aged Out No longer eligible b ased on patient's age to complete this topic Varicella Vaccines Aged Out No longer eligible based on patient's age to complete this topic Procedures Procedure Name Priority Date/Time Associated Diagnosis Comments HM DEPRESSION SCREENING Routine 07/04/2024 LIPID PANEL Routine 06/21/2018 from Last 3 Months or Most Recently Relevant to Health Maintenance Results * Depression Screening (07/04/2024) Depression Screening Abstracted Historical Provider HEALTH MAINTENANCE Final Result * (ABNORMAL) Lipid panel (06/21/2018) LDL/HDL Ratio 4 0 - 4 Triglycerides 152(A) 0 - 150 mg/dL Cholesterol 161 0 - 200 mg/dL HDL 44 >=40 mg/dL LDL Cholesterol 87 0 - 100 mg/dL Blood Venous blood specimen / Unknown Historical Provider LAB BLOOD ORDERABLES Emily l Result from Last 3 Months or Most Recently Relevant to Health Maintenance Insurance Care Teams E Learning Developer Relationship Specialty Start Date End Date Denys Sheridan MD PCP - General Internal Medicine 11/20/14
[2025-05-05 21:39] LABS: MANUAL DIFF FLAG NO
[2025-05-05 21:48] LABS: Hematocrit 43.0 % (42.0-52.0); Hemoglobin 15.5 g/dl (14.0-18.0); Imm Gran Abs Auto 0.06 X10*3/uL (0.00-0.03); Imm Gran Pct Auto 0.6 % (0.0-0.4); Lymphocytes Absolute Auto 3.6 X10*3/uL (1.2-4.9); Mean Corpuscular HGB Conc 36.0 g/dl (31.0-36.0); Mean Corpuscular Hemoglobin 30.6 pg (27.0-33.0); Mean Corpuscular Volume 84.8 fL (80.0-98.0); NRBC Abs Auto 0.000 X10*3/uL (0.0-0.012); NRBC Pct Auto 0.0 /100WBC (0.0-0.2); Platelet Count 234 X10*3/uL (160-400); Red Blood Count 5.07 X10*6/uL (4.60-5.80); White Blood Count 10.4 X10*3/uL (4.8-10.8)
[2025-05-05 21:57] LABS: Alanine Aminotransferase 56 U/L (0-40); Albumin Level 4.5 g/dL (3.5-5.0); Alkaline Phosphatase 83 U/L (39-117); Anion Gap 12 (12-20); Aspartate Amino Transferase 30 U/L (5-37); Blood Urea Nitrogen 18 mg/dL (9-16); Calcium 9.3 mg/dL (8.4-10.2); Carbon Dioxide 28 mmol/L (22-29); Chloride 107 mmol/L (96-108); Creatinine Clr Calc Pharmacy 88.3; Estimated Glomerular Filt Rate 54; Potassium 3.8 mmol/L (3.3-5.1); Sodium 143 mmol/L (135-145); Total Protein 6.9 g/dL (6.5-8.0); Uric Acid 8.3 mg/dL (3.4-7.0)
== END 2025-05-06 02:30 | disposition left against medical advice (07) ==
PROVIDERS: Physician Assistant; Emergency Provider Emergency Medicine; PCP Internal Medicine
DX: M25.562 Pain in left knee (principal); Z53.21 Procedure and treatment not carried out due to patient leaving prior to being seen by health care provider
CPT/HCPCS: 36415; 73564; 80053; 84550; 85025; 85652; 86140; 99281; 99283

== ENCOUNTER → 2025-05-05 21:05 | Outpatient (BNV) | payer OTHER, SELFPAY | PROVIDERS: PCP Internal Medicine; Visit Provider Student in an Organized Health Care Education/Training Program | DX: M25.562 Pain in left knee (principal) | CPT/HCPCS: 73564 ==